=== PATIENT | female | born 1990 | race American Indian/Alaskan Native ===

== ENCOUNTER 2020-07-23 10:54 | Emergency (ER) | payer SELFPAY ==
[2020-07-23 11:48] VITALS: BP 111/75
[2020-07-23] MEDS ORDERED: TETANUS,DIPH,PERTUSS(ACELL) VACCINE 0.5 ML SYRINGE IM ONE (11:58)
--- NOTE | 2020-07-23 12:00 | Event Note ---
ED Screening Note Date of service: 07/23/20 Time: 11:59 ED Screening Note: 29-year-old female patient presents to the emergency department with complaints of an injury to her left great toe occurring today. Patient states she was at work when a heavy box fell onto her left great toe. States her toenail "almost completely ripped off" when she attempted to remove her foot from underneath the box. Patient has never had a tetanus immunization. General: Awake, appropriately interactive, no acute distress. Neck: Supple. Full range of motion intact. Cardiovascular: Normal peripheral perfusion. Pulmonary: No respiratory distress. Patient is speaking normally without use of accessory muscles. Skin: No apparent rashes or lesions. Neurological: No facial asymmetry. Speech is clear. Follows commands. Patient is alert and oriented. Musculoskeletal: Left great toe injury with dressing in place, bleeding noted. Psych: Cooperative. Appropriate mood and affect. I have greeted and performed a focused rapid initial assessment of this patient. A comprehensive ED assessment and evaluation of the patient, analysis of all test results, and completion of the medical decision-making process will be conducted by additional ED providers. This initial assessment/diagnostic orders/clinical plan/treatment(s) is/are subject to change based on patients health status, clinical progression and re-assessment. Further treatment and workup at subsequent clinical provider's discretion. Patient/guardian urged not to elope from the ED as their condition may be serious if not clinically assessed and managed.
--- NOTE | 2020-07-23 12:38 | XRay Report ---
LEFT FOOT 3 VIEW(S) INDICATION / CLINICAL INFORMATION: box fell onto left great toe COMPARISON: None available. FINDINGS: BONES / JOINT(S): Displaced fracture noted at the tip of the great toe distal phalanx. No dislocation . No significant arthritis. SOFT TISSUES: Significant soft tissue swelling and edema noted at the tip of the great toe. ADDITIONAL FINDINGS: None. Signer Name: Austen Barrett MD Signed: 07/23/2020 12:34 PM Workstation Name: [id number]
--- NOTE | 2020-07-23 15:10 | Emergency Department Report ---
ED Lower Extremity HPI - General Chief Complaint: Extremity Injury, Lower Stated Complaint: RIGHT FOOT INJURY Source: patient Mode of arrival: Ambulatory Limitations: No Limitations - History of Present Illness Initial Comments: 29-year-old female [facility] emerge department complaining of pain to her great toe. While she was at work states something excellently fell onto her foot resulting in pain bleeding and tenderness presents emerge department seeking further evaluation treatment options. Pain is dull and throbbing worse with palpation standing and range of motion. MD Complaint: foot injury -: Gradual Injury: Toes: Left (Left hallux trauma) Type of Injury: blunt (Crush type) Place: work Severity: mild, moderate Worsens With: weight bearing, movement, palpation Context: direct blow Associated Symptoms: swelling - Related Data Previous Rx's Medication Instructions Recorded Last Taken Type Acetaminophen/Codeine [Tylenol #3] 1 tab PO Q6H PRN #15 tab 07/23/20 Unknown Rx cephALEXin [Keflex] 500 mg PO Q6HR #40 capsule 07/23/20 Unknown Rx Allergies Allergy/AdvReac Type Severity Reaction Status Date / Time No Known Allergies Allergy Unverified 07/23/20 11:03 ED Review of Systems ROS: Stated complaint: RIGHT FOOT INJURY Other details as noted in HPI Comment: All other systems reviewed and negative ED Past Medical Hx - Past Medical History Previous Medical History?: No - Surgical History Past Surgical History?: No - Medications Home Medications: Home Medications Medication Instructions Recorded Confirmed Last Taken Type Acetaminophen/Codeine [Tylenol #3] 1 tab PO Q6H PRN #15 tab 07/23/20 Unknown Rx cephALEXin [Keflex] 500 mg PO Q6HR #40 capsule 07/23/20 Unknown Rx ED Physical Exam - General Limitations: No Limitations General appearance: alert, in no apparent distress - Head Head exam: Present: atraumatic, normocephalic - Eye Eye exam: Present: normal appearance - ENT ENT exam: Present: mucous membranes moist - Neck Neck exam: Present: normal inspection - Respiratory Respiratory exam: Present: normal lung sounds bilaterally. Absent: respiratory distress - Cardiovascular Cardiovascular Exam: Present: regular rate, normal rhythm. Absent: systolic murmur, diastolic murmur, rubs, gallop - GI/Abdominal GI/Abdominal exam: Present: soft, normal bowel sounds - Extremities Exam Extremities exam: Present: normal inspection, tenderness, normal capillary refill, joint swelling - Expanded Lower Extremity Exam Left Foot/Toe exam: Present: tenderness, swelling, laceration, nail avulsion. Absent: erythema, puncture wound Neuro vascular tendon exam: Present: no vascular compromise 1 - Partial nail avulsion with laceration and wound area of the matrix. 2 - Small laceration to this region) if the toenail - Back Exam Back exam: Present: normal inspection - Neurological Exam Neurological exam: Present: alert, oriented X3 - Psychiatric Psychiatric exam: Present: normal affect, normal mood - Skin Skin exam: Present: warm, dry, intact, normal color. Absent: rash ED Course Vital Signs 07/23/20 11:46 Temperature 97.4 F L Pulse Rate 85 Respiratory 20 Rate Blood Pressure 111/75 O2 Sat by Pulse 98 Oximetry ED Lower Extremity MDM - Radiology Data Radiology results: report reviewed [address] [place] [id number] XRay Report Signed Patient: ELODIA MAHAJAN MR#: [id number] 2 : 1990 Acct:[id number] Age/Sex: 29 / F ADM Date: 07/23/20 Loc: ED Attending Dr: Ordering Physician: NAOMI JENKINS Date of Service: 07/23/20 Procedure(s): XR foot 3+V LT Accession Number(s): [id number] cc: NAOMI JENKINS Fluoro Time In Minutes: LEFT FOOT 3 VIEW(S) INDICATION / CLINICAL INFORMATION: box fell onto left great toe COMPARISON: None available. FINDINGS: BONES / JOINT(S): Displaced fracture noted at the tip of the great toe distal phalanx. No dislocation. No significant arthritis. SOFT TISSUES: Significant soft tissue swelling and edema noted at the tip of the great toe. ADDITIONAL FINDINGS: None. Signer Name: Austen Elder MD Signed: 07/23/2020 12:34 PM Workstation Name: [id number] Transcribed By: CH Dictated By: AUSTEN ELDER Electronically Authenticated By: AUSTEN ELDER Signed Date/Time: 07/23/20 1234 DD/ 1233 TD/TT: Print Cancel [address] [place] [address] XRay Report Signed Patient: ELODIA HERRERA MR#: [id number] 2 : 1990 Acct:[id number] Age/Sex: 29 / F ADM Date: 07/23/20 Loc: ED Attending Dr: Ordering Physician: NAOMI JENKINS Date of Service: 07/23/20 Procedure(s): XR foot 3+V LT Accession Number(s): [id number] cc: NAOMI JENKINS Fluoro Time In Minutes: LEFT FOOT 3 VIEW(S) INDICATION / CLINICAL INFORMATION: box fell onto left great toe COMPARISON: None available. FINDINGS: BONES / JOINT(S): Displaced fracture noted at the tip of the great toe distal phalanx. No dislocation. No significant arthritis. SOFT TISSUES: Significant soft tissue swelling and edema noted at the tip of the great toe. ADDITIONAL FINDINGS: None. Signer Name: Austen Elder MD Signed: 07/23/2020 12:34 PM Workstation Name: [id number] Transcribed By: CH Dictated By: AUSTEN ELDER Electronically Authenticated By: AUSTEN ELDER Signed Date/Time: 07/23/20 1234 DD/ 1233 TD/TT: Print Cancel Critical care attestation.: If time is entered above; I have spent that time in minutes in the direct care of this critically ill patient, excluding procedure time. ED Disposition Clinical Impression: Toe fracture, left, Toe laceration Disposition: DC-01 TO HOME OR SELFCARE Is pt being admited?: No Does the pt Need Aspirin: No Condition: Stable Instructions: Toe Fracture, [id number], Toe Fracture Rehab-SportsMed, Laceration Care, Adult, [id number], Cast or Splint Care, Adult Referrals: PRIMARY CAREMD [Primary Care Provider] - 3-5 Days NATHANAEL BRANHAM MD [Staff Physician] - 3-5 Days DAYO JACKSON MD [Staff Physician] - 3-5 Days
[2020-07-23] MEDS ORDERED: ceFAZolin 1 GM VIAL IM STA (15:19)
[2020-07-23] MEDS ORDERED: HYDROcodone/ACETAMINOPHEN 5-325 MG TAB PO STA (15:28)
[2020-07-23] MEDS ORDERED: SODIUM CHLORIDE 0.9% IRR 500 ML BOTTLE IR ONE (16:05)
== END 2020-07-23 16:40 | disposition home or self-care (01) ==
LOC: ED 10:54
DX: S92.402A Displaced unspecified fracture of left great toe, initial encounter for closed fracture (principal); W18.39XA Other fall on same level, initial encounter; Y93.89 Activity, other specified; Y92.89 Other specified places as the place of occurrence of the external cause; Y99.8 Other external cause status
CPT/HCPCS: 73630; 90471; 90715; 96372; 99283; J0690